=== PATIENT | male | born 2000 | race Caucasian/White ===

== ENCOUNTER 2024-01-05 05:58 | Day surgery (SDC) | payer SELFPAY, OTHER ==
[2024-01-05] VITALS (11 sets, daily range): BP systolic 103–142; BP diastolic 64–80; PULSE 58–73; RESP 16–18; TEMP 36.4–37.2; O2SAT 95–99; BMI 27.3
--- OUTSIDE RECORDS SUMMARY | 2024-01-05 06:04 | XMS RPT_ITS | CCD ---
Author Name Unknown Address [address] [place] [address] Organization [facility] Care Team Providers Care Senior Agricultural Assistant Name Role Phone ARETHA AMADOR Attending Unavailable ARETHA AMADOR Primary Care Unavailable ARETHA AMADOR Admitting Unavailable Unavailable Primary Care Provider UnavailAZUL Vasquez Referring Unavailable SELF Referring Unavailable AZUL SCRUGGS Attending Unavailable RAO PEARCE Attending UnavailAZUL Vasquez Referring Unavailable Og Wilcox PA-C Unavailable Timothy ZAMARRIPA, Dr. Starks Unavailable [phone] Problems Active Problems Problem Classification Problem Date Documented Da te Episodic/Chronic Abdominal hernia (8 sources) Right inguinal hernia ; Translations: [Unilateral inguinal hernia, without obstruction or gangrene, not specified as recurrent] Onset: 09-14-2023 09-14-2023 Episodic Other male genital disorders (3 sources) Adult hydrocele; Translations: [Hydrocele, unspecified] 07-13-2023 Episodic Other male genital disorders (2 sources) Hydrocele, unspecified; Translations: [Hydrocele in adult] Onset: 09-02-2023 Episodic Past or Other Problems Problem Classification Problem Date Documented Da te Episodic/Chronic Unclassified (2 sources) Hernia - Pt has hernia causing hydrocele, DX one year ago through [facility]. Pt states they gave me the run around . Pt presents today for reevaluation and to discuss referral for surgical repair. Pt states the hernia is painful with excessive activity and significantly worsens with heavy lifting. Pt denies recent change in size since diagnosis. Pt does note improvement with supportive undergarments and notes that the mass is fully reducible when laying supine. 11-18-2023 Results Test Name Value Interpretation Reference Range Facil ity Vital Signs Date Time Vital Sign Value Performing Clinician Aarti cuenca 11-18-2023 15:08-0500 Body height 185.42 cm Og AlexandraBrenden PA- C Work Phone: [employer]; [employer] 11-18-2023 15:08-0500 Body mass index (BMI) [Ratio] 26.65 kg/m2 Og Brenden PA-C Work Phone: [employer]; [employer] 11-18-2023 15:08-0500 Body surface area Derived from formula 2.16 m2 MargaritaForwardMetricsBrenden PA-C Work Phone: [employer]; [employer] 11-18-2023 15:08-0500 Body weight 91.63 kg MargaritaForwardMetricsBrenden PA- C Work Phone: [employer]; [employer] 11-18-2023 15:08-0500 Diastolic blood pressure 62 mm[Hg] MargaritaForwardMetricsBrenden PA-C Work Phone: [employer]; [employer] Encounters Encounter Date Encounter Type Care Provider Facility Start: 11-18-2023 End: 11-18-2023 Patient encounter procedure Og Chaneyetler PA-C Work Phone: [employer] Start: 09-14-2023 End: 09-14-2023 ambulatory RAO PEARCE Facility:[id number] Start: 09-14-2023 End: 09-14-2023 Patient encounter procedure Rao Pearce MD Work Phone: Urology Procedures Date Procedure Procedure Detail Performing Clinician Start: 09-02-2023 Dup-scan artl sasha abdl/pel/scrot&/rpr orgn com Azul Scruggs PA-C Work Phone: Start: 09-02-2023 Us scrotum & contents B fahad GAONA-Trini Work Phone: Plan of Treatment Date Care Activity Detail Author Start: 07-16-2023 Influenza vaccination [facility] Start: 11-15-2022 DEPRESSION ASSESSMENT DEPRESSION ASSESSMENT [facility] Start: 2018 Urine microalbumin profile [facility] Start: 2017 HEPATITIS C SCREENING HEPATITIS C SCREENING [facility] Start: 2017 HIV SCREENING HIV SCREENING [facility] Start: 2015 Meningococcal B Vaccine: Consider Based On Risk (1 of 2 - Patient Seeks Protection) Meningococcal B Vaccine: Consider Based On Risk (1 of 2 - Patient Seeks Protection) [facility] Start: 2015 MENINGOCOCCAL B: Consider based on risk (1 of 2 - Patient Seeks Protection) MENINGOCOCCAL B: Consider based on risk (1 of 2 - Patient Seeks Protection) [facility] Start: 2013 PEDS TO ADULT TRANSITION ANNUAL ASSESSMENT PEDS TO ADULT TRANSITION ANNUAL ASSESSMENT [facility] Start: 2011 PEDS TO ADULT TRANSITION INITIAL DISCUSSION PEDS TO ADULT TRANSITION INITIAL DISCUSSION [facility] Start: 2008 HPV VACCINE (1 - Male 2-dose series) HPV VACCINE (1 - Male 2-dose series) [facility] Start: 01-31-2000 COVID-19 VACCINE (#1) COVID-19 VACCINE (#1) [facility] Start: 1999 HEPATITIS B (1 of 3 - 3-dose series) HEPATITIS B (1 of 3 - 3-dose series) [facility] Start: 1999 Hepatitis B Vaccine (1 of 3 - 3-dose series) Hepatitis B Vaccine (1 of 3 - 3-dose series) [facility] End: 10-13-2024 US HIP RIGHT US HIP RIGHT Radiology Routine Right inguinal hernia Hydrocele in adult 1 Occurrences starting 09/14/2023 until 10/13/2024 [facility] Work Phone: Payers Date Payer Category Payer Unknown [id number] 2023 Unknown [id number] Social History Date Type Detail Facility Start: 07-13-2023 [facility] History of tobacco use Current smoker [facility] History of tobacco use Cigarette Smoker C [facility] Start: 07-13-2023 Tobacco use and exposure Smokeless tobacco non-user [facility] Start: 07-13-2023 Alcohol intake Ex-drinker (finding) [facility] Start: 07-13-2023 End: 09-14-2023 History of Social function [facility] Start: 07-13-2023 End: 09-14-2023 Tobacco use panel [facility] Start: 1999 Sex Assigned At Not on file C [facility] Start: 09-14-2023 Alcohol intake Current drinke r of alcohol (finding) [facility] National Score (1-100), lower number is lower risk 48 [facility] Start: 09-14-2023 Alcohol Comment Social [facility] Tobacco Use: Tobacco Use: ; C urrent every day smoker. [employer]; [employer] Male [employer]; [employer] Work Phone: Smokes tobacco daily [employer] Work Phone: Clinical Notes 07-13-2023 to 09-14-2023 Rao Pearce MD - 09/14/2023 4:25 PM EDTTelephone Encounter - Renée Joel - 09/09/2023 10:23 AM EDTTelephone Encounter - Azul Scruggs PA- C - 09/08/2023 2:21 PM EDT Note Date & Type Note Facility 09-14-2023 Note HNO ID: [id number] Author: Rao Pearce MD Service: ? Author Type: Physician Type: Progress Notes Filed: 09/14/2023 4:53 PM Note Text: [facility] UROLOGY ESTABLISHED PATIENT CLINIC NOTE UROL [place] [facility] PATIENT INFO: Bruce Schrader 23 year old PCP: No primary care provider on file. REASON FOR VISIT: Bilateral hydroceles HPI: Bruce Schrader returns for continuing evaluation and management. Constant pain of the scrotum with certain activities, ie sneezing, cough, heavy lefting. Remebers a moment several months ago when he was lifting heavy items for several days, felt a sudden pain in his right groin, and then began seeing swelling in the right inguinal region. This is now traveled down into the right scrotum. UROLOGICAL DATA: Urinalysis: No results found for this basename: uglucpoc,ubilipoc,uketonpoc,usg poc,uhbpoc,uphpoc,upropoc,uurop oc,unitpoc,uw bcpoc,ucolpoc,uclarpoc Post Void Residual, Ultrasound: N/A cc OTHER DATA: No results found for: PSA , PSAPER No results found for: ISOPSA No results found for: CREAT No results found for: TESTOST , TESTFREE PMHx/PSHx: see above, otherwise unchanged Rx: reviewed and unchanged ROS: see above, otherwise unchanged Denies any voiding dysfunction. Labs: None Imaging: None MEDICATIONS: No current outpatient medications on file. No current facility-administered medications for this visit. PHYSICAL EXAM: BP 110/72 Pulse 74 SpO2 94% There is no height or weight on file to calculate BMI. General: Well masculinized, well nourished male Psych: euthymic, NAD Neuro: AANDOx3 Inguinal: No lesions, mild right inguinal swelling noted with out tenderness Phallus: normal, circumcised, no lesions Meatus: orthotopic, patent, no discharge Scrotum: Significant swelling noted superior to the right testicle, however none below where typical hydrocele would accumulate. No lesions, normal rugae Testes: Descended, nontender, and no masses bilaterally VERONICA not indicated ASSESSMENT/PLAN: 1. Right inguinal hernia - ICD9: 550.90, ICD10: K40.90 (primary diagnosis) -Patient's symptoms are likely due to a sliding right inguinal hernia, especially since swelling has moved from the inguinal region down now into the right scrotum. Initially presented with acute onset after heavy lifting. Hydroceles seen on ultrasound are minimal. Obtain additional imaging and refer to general surgery. - US HIP RIGHT - CONSULT TO GENERAL SURGERYJamie 2. Hydrocele in adult - ICD9: 603.9, ICD10: N43.3 - Hydrocele size is relatively small. Reassurance provided. Surgical intervention not required at this time. FOLLOW UP: He will follow up with General Surgery Rao Pearce M.D, MS Associate Staff [facility] Cc: Azul Scruggs PA-C [facility] 09-14-2023 History of Presen t illness Narrative Images from the original note were not included. [facility] [place] UROLOGY ESTABLISHED PATIENT CLINIC NOTE UROBouchra POWELL PATIENT INFO: Bruce Schrader 23 year old PCP: No primary care provider on file. REASON FOR VISIT: Bilateral hydroceles HPI: Bruce Schrader returns for continuing evaluation and management. Constant pain of the scrotum with certain activities, ie sneezing, cough, heavy lefting. Remebers a moment several months ago when he was lifting heavy items for several days, felt a sudden pain in his right groin, and then began seeing swelling in the right inguinal region. This is now traveled down into the right scrotum. UROLOGICAL DATA: Urinalysis: No results found for this basename: uglucpoc,ubilipoc,uketonpoc,usg poc,uhbpoc,uphpoc,upropoc,uurop oc,unitpoc,uwbcpoc,ucolpoc,ucla rpoc Post Void Residual, Ultrasound: N/A cc OTHER DATA: No results found for: PSA , PSAPER No results found for: ISOPSA No results found for: CREAT No results found for: TESTOST , TESTFREE PMHx/PSHx: see above, otherwise unchanged Rx: reviewed and unchanged ROS: see above, otherwise unchanged Denies any voiding dysfunction. Labs: None Imaging: None MEDICATIONS: No current outpatient medications on file. No current facility-administered medications for this visit. PHYSICAL EXAM: BP 110/72 Pulse 74 SpO2 94% There is no height or weight on file to calculate BMI. General: Well masculinized, well nourished male Psych: euthymic, NAD Neuro: A&Ox3 Inguinal: No lesions, mild right inguinal swelling noted with out tenderness Phallus: normal, circumcised, no lesions Meatus: orthotopic, patent, no discharge Scrotum: Significant swelling noted superior to the right testicle, however none below where typical hydrocele would accumulate. No lesions, normal rugae Testes: Descended, nontender, and no masses bilaterally VERONICA not indicated ASSESSMENT/PLAN: 1. Right inguinal hernia - ICD9: 550.90, ICD10: K40.90 (primary diagnosis) -Patient's symptoms are likely due to a sliding right inguinal hernia, especially since swelling has moved from the inguinal region down now into the right scrotum. Initially presented with acute onset after heavy lifting. Hydroceles seen on ultrasound are minimal. Obtain additional imaging and refer to general surgery. - US HIP RIGHT - CONSULT TO GENERAL SURGERY, Jamie 2. Hydrocele in adult - ICD9: 603.9, ICD10: N43.3 - Hydrocele size is relatively small. Reassurance provided. Surgical intervention not required at this time. FOLLOW UP: He will follow up with General Surgery Rao Pearce M.D, MS Associate Staff [facility] Cc: Azul Scruggs PA-C documented in this encounter [facility] 09-09-2023 Miscellaneous Notes Pt confirmed his appt with Dr. Pearce in [place] 09/14/23 @ 4:00 pm. Blanquita Patient would like surgical consult for Bilateral Hydrocele, he was given results and would like to discuss surgical options.. HANY Santiago, TIGRE CHAVEZ Patient called back and given the below message of results and contact information for Dr. Benson. Patient can be reached at [phone] today if needed. Raquel Lemus RN Called patient. No answer- left message to call clinic. Janna Espinosa LPN Left pt vm. He needs to call fin clearance. He has self pay adventist ins. He needs an appt for christine hydroceles. Ref Called patient. No answer- left message to call clinic. Janna Espinosa LPN Please let patient know he does have bilateral Hydrocele, and I sent referral to Dr. Benson for Surgical consult if patient wishes to go forward with surgical consult HANY Santiago, TIGRE CHAVEZ documented in this encounter [facility] 09-02-2023 Note HNO ID: [id number] Author: Melani Francois RDMS Service: ? Author Type: Lining Cementer Type: Progress Notes Filed: 09/02/2023 2:21 PM Note Text: Radiology Service Progress Note PATIENT NAME: Bruce Schrader DATE OF SERVICE: September 02, 2023 TIME: 2:21 PM PATIENT IDENTITY VERIFICATION COMPLETED USING TWO (2) IDENTIFIERS: Name and Date of confirmed by patient verbally. FALL SCREENING: Has the patient had 2 falls in the last year or 1 fall with injury or currently using an Ambulatory Assistive Device (Walker, Cane, Wheelchair, Crutches, etc.)? No PATIENT GENDER DATA: Male PATIENT RELEVANT IMPLANT DATA REVIEWED: Not Applicable RADIOLOGY DEPARTMENT: Ultrasound PERIPHERAL IV DATA: Not applicable SIGNED BY: Melani Francois RDMS RVT September 02, 2023 2:[address] [facility] 09-02-2023 History of Presen t illness Narrative Radiology Service Progress Note PATIENT NAME: Bruce Schrader DATE OF SERVICE: September 02, 2023 TIME: 2:21 PM PATIENT IDENTITY VERIFICATION COMPLETED USING TWO (2) IDENTIFIERS: Name and Date of confirmed by patient verbally. FALL SCREENING: Has the patient had 2 falls in the last year or 1 fall with injury or currently using an Ambulatory Assistive Device (Walker, Cane, Wheelchair, Crutches, etc.)? No PATIENT GENDER DATA: Male PATIENT RELEVANT IMPLANT DATA REVIEWED: Not Applicable RADIOLOGY DEPARTMENT: Ultrasound PERIPHERAL IV DATA: Not applicable SIGNED BY: Melani Francois RDMS RVT September 02, 2023 2:21 PM documented in this encounter [facility] 07-13-2023 Note HNO ID: [id number] Author: Azul Scruggs PA-C Service: ? Author Type: Physician Asphalt Coater Type: Progress Notes Filed: 07/13/2023 6:30 PM Note Text: [facility] [place] [facility] NEW PATIENT CLINIC NOTE SERVICE DATE: 07/13/2023 SERVICE TIME: 6:25 PM NAME: Bruce Schrader CHIEF COMPLAINT: Right side Hydrocele HISTORY OF PRESENT ILLNESS: Bruce Schrader is a 22 year old male presenting with Right side hydrocele The patient reports right side scrotum is enlarging more from 10/2022 and starting to cause pain Discussed MRI results in [facility] and will get an updated Scrotum US Refer to Dr. Benson once US is final LUTS: None Other symptoms: ED - no LABS: No results found for: TESTOST No results found for: TESTFREE No results found for: PSA No results found for: HCT No results found for: PSA No results found for: CREAT . MEDICATIONS: No prescriptions on file. PAST MEDICAL HISTORY: History reviewed. No pertinent past medical history. PAST SURGICAL HISTORY: History reviewed. No pertinent surgical history. FAMILY HISTORY: No family history on file. SOCIAL HISTORY: Social Connections: Not on file REVIEW OF SYSTEMS: GENERAL: No fever, chills, weight loss, or fatigue. ENMT: Negative CARDIOVASCULAR:NO CHEST PAIN, PALPITATIONS, ANKLE EDEMA RESPIRATORY: No chronic cough, wheezing, dyspnea, hemoptysis. GENITOURINARY: SEE HPI MUSCULOSKELETAL:NO CHRONIC BACK PAIN, ARTHRITIS, CHRONIC NECK PAIN SKIN: NO VARICOSE VEINS, RASH, ABNORMAL ITCHING HEME/LYMPH/IMMUNE:Negative for prolonged bleeding, bruising easily or swollen nodes NEUROLOGICAL: NO HEADACHES, NUMBNESS, SEIZURES, STROKE DIABETES: no All other systems reviewed and are negative PHYSICAL EXAMINATION: Blood pressure 108/60, pulse 60, temperature 36.7 ?C (98 ?F), temperature source Temporal, resp. rate 12, height 185.4 cm (6' 1 ), weight 94.4 kg (208 lb 3.2 oz), SpO2 96 %. GENERAL: WNL nutrition, no deformities, healthy appearing NEURO: Awake, alert and oriented x 3 and Normal gait PSYCH: No signs of depression, anxiety, or agitation ENMT (Ear, Nose, Mouth, Throat): No masses, adenopathy, icterus. Thyroid nonpalpable RESP: NL effort, no retractions or purse-lip breathing. CV: No extremity swelling, varices, edema, pallor, erythema GASTROINTESTINAL: Soft, nontender, nondistended, no masses. HERNIAS: None SKIN: No rash, lesions No palpable lymphadenopathy MUSCULOSKELETAL: Extremities normal. No deformities, edema, clubbing or skin discoloration. GENITOURINARY: MALE EXAM: Hydroceles: Right PROBLEM LIST REVIEW: Yes LABS: No results found for this or any previous visit. IMAGING: Scrotum US - Pending IMPRESSION/PLAN: 22 year old male with 1. Hydrocele in adult - ICD9: 603.9, ICD10: N43.3 > Reviewed MRI from 2021 that shows moderate sized hydrocele on right side Dicussed Consult with Dr. Benson after he has an updated Scrotum US Patient feels there is a new hernia as well, will get imaging and if an inguinal hernia is present he may need Gen Surg Consult I spent a total of 30 minutes on the date of the service which included preparing to see the patient, face to face patient care, completing clinical documentation, obtaining and/or reviewing separately obtained history, performing a medically appropriate examination, counseling and educating the patient/family/caregiver, ordering medications, tests, or procedures, and care coordination. Azul Scruggs, ANTONELLAS, [place], PA-C [facility] 07-13-2023 History of Presen t illness Narrative Images from the original note were not included. [facility] [place] [facility] NEW PATIENT CLINIC NOTE SERVICE DATE: 07/13/2023 SERVICE TIME: 6:25 PM NAME: Bruce Schrader CHIEF COMPLAINT: Right side Hydrocele HISTORY OF PRESENT ILLNESS: Bruce Schrader is a 22 year old male presenting with Right side hydrocele The patient reports right side scrotum is enlarging more from 10/2022 and starting to cause pain Discussed MRI results in [facility] and will get an updated Scrotum US Refer to Dr. Benson once US is final LUTS: None Other symptoms: ED - no LABS: No results found for: TESTOST No results found for: TESTFREE No results found for: PSA No results found for: HCT No results found for: PSA No results found for: CREAT . MEDICATIONS: No prescriptions on file. PAST MEDICAL HISTORY: History reviewed. No pertinent past medical history. PAST SURGICAL HISTORY: History reviewed. No pertinent surgical history. FAMILY HISTORY: No family history on file. SOCIAL HISTORY: Social Connections: Not on file REVIEW OF SYSTEMS: GENERAL: No fever, chills, weight loss, or fatigue. ENMT: Negative CARDIOVASCULAR:NO CHEST PAIN, PALPITATIONS, ANKLE EDEMA RESPIRATORY: No chronic cough, wheezing, dyspnea, hemoptysis. GENITOURINARY: SEE HPI MUSCULOSKELETAL:NO CHRONIC BACK PAIN, ARTHRITIS, CHRONIC NECK PAIN SKIN: NO VARICOSE VEINS, RASH, ABNORMAL ITCHING HEME/LYMPH/IMMUNE:Negative for prolonged bleeding, bruising easily or swollen nodes NEUROLOGICAL: NO HEADACHES, NUMBNESS, SEIZURES, STROKE DIABETES: no All other systems reviewed and are negative PHYSICAL EXAMINATION: Blood pressure 108/60, pulse 60, temperature 36.7 C (98 F), temperature source Temporal, resp. rate 12, height 185.4 cm (6' 1 ), weight 94.4 kg (208 lb 3.2 oz), SpO2 96 %. GENERAL: WNL nutrition, no deformities, healthy appearing NEURO: Awake, alert and oriented x 3 and Normal gait PSYCH: No signs of depression, anxiety, or agitation ENMT (Ear, Nose, Mouth, Throat): No masses, adenopathy, icterus. Thyroid nonpalpable RESP: NL effort, no retractions or purse-lip breathing. CV: No extremity swelling, varices, edema, pallor, erythema GASTROINTESTINAL: Soft, nontender, nondistended, no masses. HERNIAS: None SKIN: No rash, lesions No palpable lymphadenopathy MUSCULOSKELETAL: Extremities normal. No deformities, edema, clubbing or skin discoloration. GENITOURINARY: MALE EXAM: Hydroceles: Right PROBLEM LIST REVIEW: Yes LABS: No results found for this or any previous visit. IMAGING: Scrotum US - Pending IMPRESSION/PLAN: 22 year old male with 1. Hydrocele in adult - ICD9: 603.9, ICD10: N43.3 > Reviewed MRI from 2021 that shows moderate sized hydrocele on right side Dicussed Consult with Dr. Benson after he has an updated Scrotum US Patient feels there is a new hernia as well, will get imaging and if an inguinal hernia is present he may need Gen Surg Consult I spent a total of 30 minutes on the date of the service which included preparing to see the patient, face to face patient care, completing clinical documentation, obtaining and/or reviewing separately obtained history, performing a medically appropriate examination, counseling and educating the patient/family/caregiver, ordering medications, tests, or procedures, and care coordination. HANY Santiago, [place], TIGRE documented in this encounter [facility] [place] [facility] Diagnosis Right inguinal hernia- Primary Inguinal hernia without mention of obstruction or gangrene, unilateral or unspecified, (not specified as recurrent) Hydrocele in adult documented [facility] [place] [facility] Diagnosis Hydrocele in adult [facility] Diagnostic Procedure Only (Routine) - Pending Review Specialty Diagnoses / Procedures Referred By Elieser francisco Referred To Contact US IMAGING Diagnoses Hydrocele in adult Procedures US SCROTUM AND CONTENTS US SCROTUM & CONTENTS Azul Scruggs PA-C [address] [place] [address] [place] [address] Referral ID Status Reason Start Date Expiration Date Visits Requested Visits Authorized [id number] Pending Review Auto-Generat ed Referral 07/13/2023 08/11/2024 1 1 [facility] Diagnostic Procedure Only (Routine) - Closed Specialty Diagnoses / Procedures Referred By Elieser t Referred To Contact US IMAGING Diagnoses Hydrocele in adult Procedures US SCROTUM AND CONTENTS US SCROTUM & CONTENTS Azul Scruggs PA-C [address] [place] [id number] [facility] Imaging [facility] Referral ID Status Reason Start Date Expiration Date V isits Requested Visits Authorized [id number] Closed Auto-Generat ed Referral Patient Cleared - [facility] Fund 07/13/2023 08/11/2024 1 1 [facility] Summary Purpose Family History Hypertension Status:Active Comments:Mother. Hypertension Status:Active Comments:Mother. Advance Directives No Advanced Directives Records FoundNo Advanced Directives Records FoundNo Advanced Directives Records Found Reason for Referral Specialty Diagnoses / Procedures Referred By Elieser t Referred To Contact General Surgery Diagnoses Right inguinal hernia Procedures CONSULT TO GENERAL SURGERY Rao Pearce MD [address] [place] [address] [place] [address] [place] [address] Referral ID Status Reason Start Date Expiration Date Visits Requested Visits Authorized [id number] Ref Not Required PCP Requested Referral 3 09/13/2024 1 1 Specialty Diagnoses / Procedures Referred By Elieser t Referred To Contact US IMAGING Diagnoses Right inguinal hernia Hydrocele in adult Procedures US HIP RIGHT US COMPL JOINT R-T W/IMAGE DOCUMENTATION Rao Pearce MD [address] [place] [address] [place] [address] Referral ID Status Reason Start Date Expiration Date Visits Requested Visits Authorized [id number] Pending Review Auto-Generat ed Referral 3 10/13/2024 1 1 Additional Source Comments (unrecognized sect ion and content) No Status Records FoundNo Status Records FoundNo Status Records Found INFORMATION SOURCE (unrecogn ized section and content) DATE CREATED AUTHOR AUTHOR'S ORGANNICOLAS ATION 09/11/2023 [facility] DATE CREATED AUTHOR AUTHOR'S ORGANNICOLAS ATION 09/15/2023 [facility] nter Source Comments (unrecognize d section and content) In the event this informatio n is protected by the Federal Confidentiality of Alcohol and Drug Abuse Patient Records regulations: The Federal rules restrict any use of the information to criminally investigate or prosecute any alcohol or drug abuse patient.[facility] HealthIn the event this information is protected by the Federal Confidentiality of Alcohol and Drug Abuse Patient Records regulations: The Federal rules restrict any use of the information to criminally investigate or prosecute any alcohol or drug abuse patient.[facility] HealthIn the event this information is protected by the Federal Confidentiality of Alcohol and Drug Abuse Patient Records regulations: The Federal rules restrict any use of the information to criminally investigate or prosecute any alcohol or drug abuse patient.[facility] HealthIn the event this information is protected by the Federal Confidentiality of Alcohol and Drug Abuse Patient Records regulations: The Federal rules restrict any use of the information to criminally investigate or prosecute any alcohol or drug abuse patient.[facility] Reason for Visit (unrecogniz ed section and content) Specialty Diagnoses / Procedures Referred By Elieser t Referred To Contact UROLOGY Diagnoses testicular pain Procedures office visit/ est care Self Urol [facility] [address] [place] [address] Referral ID Status Reason Start Date Expiration Date V isits Requested Visits Authorized [id number] Closed Patient Cleared - [facility] 06/29/2023 09/27/2023 1 1 Reason Comments Appointment Reason Comments Hydrocele in adult Pain when lifting Specialty Diagnoses / Procedures Referred By Elieser t Referred To Contact Urology / UROLOGY Diagnoses urol est bilateral hydroceles Procedures Urol est Azul Scruggs PA-C [address] [place] [address] Joseph Benson MD [address] [place] [address] Referral ID Status Reason Start Date Expiration Date V isits Requested Visits Authorized [id number] Closed Financial Clearance Required - Self Pay Patient Cleared - [facility] 09/06/2023 12/05/2023 1 1 Reason Comments Radiology US Specialty Diagnoses / Procedures Referred By Elieser t Referred To Contact US IMAGING Diagnoses Hydrocele in adult Procedures US SCROTUM AND CONTENTS US SCROTUM & CONTENTS Azul Scruggs PA-C [address] [place] [address] [place] [address] Referral ID Status Reason Start Date Expiration Date V isits Requested Visits Authorized [id number] Closed Auto-Generat ed Referral Patient Cleared - [facility] 07/13/2023 08/11/2024 1 1 FOR RECORDS PERTAINING TO PATIENTS WHO ARE OR HAVE BEEN ENROLLED IN A CHEMICAL DEPENDENCY/SUBSTANCEABUSE PROGRAM, SOME INFORMATION MAY BE OMITTED. This clinical summary was aggregated from multiple sources. Caution should be exercised in using it in the provision of clinical care. This summary normalizes information from multiple sources, and as a consequence, information in this document may materially change the coding, format and clinical context of patient data. In addition, data may be omitted in some cases. CLINICAL DECISIONS SHOULD BE BASED ON THE PRIMARY CLINICAL RECORDS. [facility] provides no warranty or guarantee of the accuracy or completeness of information in this document.
--- NOTE | 2024-01-05 07:07 | HP.PCM_ITS ---
History and Physical Date of Admission: 01/05/24 Date of Service: 12/03/23 MR#: [id number] Acct: [id number] Name: STORM WILHELM Rep #: [id number] : 2000 Provider: Dr. Tereza Aguirre MD Age/Sex: 23/M Location: [facility] Status: Signed Intake Vital Signs 12/03/2413:14 Height 6 ft 1 in Weight: 208 lb 2 oz BMI 27.4 BP 138/73 H Blood Pressure Location Rt brachial Position Sitting Respiration 17 Pulse 73 Pulse Source Monitor Temp 97.4 F L Temp Source Temporal Pulse Oximetry (%) 96 Oxygen Delivery Method room air Intake Visit Reasons: Hernia Chief Complaint: right inguinal hernia Calker Required: No Is patient in pain?: No Allergies No Known Allergies Allergy (Unverified 12/03/23 14:15) Medications NK 12/03/23 [History Confirmed 12/03/23] PFSH Family History (Updated 12/03/23 @ 14:14 by Janna Martin LPN) Mother Hypertension Social History (Updated 12/03/23 @ 14:14 by Janna Martin LPN) Smoking Status: Current every day smoker tobacco type: cigarettes alcohol intake: current alcohol intake frequency: holidays/special occasions only substance use type: does not use HPI HPI HPI: 23-year-old male presents due to right inguinal hernia. Patient states she has had it for about a year and a half however it seems to have gotten larger he does have a bulge that does reduce 20s laying down and he is able to push it back in. Patient currently states pain with it may be a 2/10. 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 ROS General General: No weight change, appetite, fatigue, colon cancer, breast cancer or weakness HEENT HEENT: No difficulty swallowing, eye injury, eye surgery, swollen glands or hoarseness Endo Endocrine: No thyroid disease, diabetes mellitus, thyroid cancer, Hair loss, heat intolerance or cold intolerance Skin Skin: No rash or changing moles Musc Musculoskeletal: No back problems, arthritis, rheumatoid arthritis, gout or joint pain Cardio Cardiovascular: No murmur, pacemaker, heart disease, atrial fibrillation, high blood pressure, heart attack, heart stent, palpitations, shortness of breat with exertion or chest pain Psych Psychiatric: No depression, anxiety or hearing voices Resp Respiratory: No shortness of breath, No sleep apnea, No cough, No COPD, No asthma, No emphysema and No wheezing Gastro Gastrointestinal: No abdominal pain, No nausea or vomiting, No diarrhea, No constipation, No blood in stool, No acid reflux, No hemorrhoids, No ulcers, No gallbladder problem and No black,tarry stools Calixto Hematologic: No blood thinners, No blood disorders, No bleeding, No anemia and No blood clots Neuro Neurologic: No system reviewed and no additional complaints, except as documented, No as per HPI, No abnormal gait, No abnormal hearing, No abnormal movements, No abnormal speech, No behavioral changes, No burning sensations, No confusion, No convulsions, No disequilibrium, No dizziness, No localized weakness, No frequent falls, No headache(s), No lack of coordination, No loss of vision, No memory loss, No numbness, No other visual disturbances, No radicular pain, No restless legs, No sensory deficit, No syncope, No tingling, No tremor(s), No weakness and No other Exam Const General: cooperative, healthy appearing, comfortable and no acute distress HENMT Head: normocephalic and atraumatic Neck Neck: supple Resp Effort & Inspection: normal respiratory effort Cardio Rate: regular rate GI Inspection: non-distended Palpation: soft, no hernias and nontender Other: Right inguinal hernia on exam?reducible--laminator preforms present Skin General: no rashes or lesions noted Neuro General: CN's II-XI intact bilaterally Extrem General: normal to inspection Psych Mental Status: mental status grossly normal Attitude: cooperative Assessment and Plan Assessment and Plan (1) Right inguinal hernia: Status: Acute Plan Plan to do a laparoscopic right inguinal hernia repair with mesh. Reviewed the procedure with the patient including the risks, including but not limited to infection, bleeding, paresthesia, chronic pain, injury to small bowel or contents of the spermatic cord, and recurrence. Patient no further question at this time. Tereza Aguirre M.D. Pager: [phone] [facility] [address] [place] [address], [address] [place] [address] Office: [phone] Coding Level of Care Code Off vis,new,level 3 Diagnoses Right inguinal hernia K40.90 12/07/23 1145 <Electronically signed by Tereza Aguirre MD> Date Tereza Aguirre MD
[2024-01-05] MEDS: Cefazolin 2 GM in 0.9% Normal Saline (100mL Bag) 100 ML IV (07:26)
[2024-01-05] MEDS: Bupivacaine Mpf 0.5% 30 ML VIAL (07:49)
--- NOTE | 2024-01-05 09:44 | PCM.OPRPT ---
Report of Operation Date of Procedure: 01/05/24 Pre-Operative Diagnosis: Right inguinal hernia Post-Operative Diagnosis: Bilateral inguinal hernia Surgery/Procedure Performed:: laparoscopic right inguinal hernia repair with mesh Description of Surgical Findings:: Redundant sac ligated and closed with the Endoloop, patient does have a small left inguinal hernia seen during laparoscopy asymptomatic?picture taken Surgeon: Tereza Aguirre service officer: Sara Garcia Type of Anesthesia: General/Supplemental Anesthesiologist: Gilberto Jefferson Special Medications: Ancef 2 g IV x 1 Specimen's removed: None Estimated Blood Loss (mL): 15 cc Description of Procedure: Indications: 23-year-old male presented with right inguinal hernias which was symptomatic. Laparoscopic right inguinal hernia repair with mesh was elected patient was agreeable. Description of procedure: Patient was brought to operating room placed supine operative table. Timeout was completed verifying correct patient, procedure, site, positioning, special, prior to beginning procedure. General anesthesia was induced. Grajeda catheter was placed. Patient's arms were tucked and padded appropriately. Midline supraumbilical incision was made with a 15 blade scalpel. The fascia was elevated and incised. Entry into the abdomen was confirmed visually. The Blanco trocar was placed. Laparoscope was placed. Verifying no injury during initial trocar placement. Patient was placed in Trendelenburg position. Two 5 mm trochars were placed lateral to the rectus sheath under direct visualization. Both the inguinal regions were inspected and larger right indirect inguinal hernia was seen along with a smaller left indirect inguinal hernia. The median umbilical ligament was divided sharply with electrocautery. Peritoneum was incised with the endoscopic scissors along a line 2 cm above the superior edge of the hernia defect extending from the median umbilical ligament to anterior superior iliac spine. Peritoneal flap was mobilized inferiorly using blunt and sharp dissection. The inferior epigastric vessels were exposed and symphysis pubis and identified. Clay's ligament was identified. Dissection was continued inferiorly to the iliopubic track with care taken to avoid injury to the femoral branch of the genitofemoral nerve and lateral femoral cutaneous nerve. The cord structures were parietalized. The indirect hernia sac was noted and mobilized from the cord structures. Due to redundant sac the sac was ligated and reduced into the peritoneal cavity. A large mid weight size Bard 3D max mesh right was used. The mesh was rolled longitudinally into a compact cylinder and passed through the trocar. The cylinder was placed along the inferior aspect of the working space and unrolled into place to completely cover the direct, indirect and femoral spaces and laying flat. The mesh was secured in place medially to Clay's ligament using the Secure strap as well as to the anterior abdominal wall. care was taken to avoid the inferolateral triangle containing iliac vessels and genital nerves. The peritoneal flap was secured back to the abdominal wall with secure strap as well. There was some bleeding at one of the tack sites. Pressure was held and appeared to be controlled with pressure and hemoblast was placed on the area with pressure held with a wet Ray-Cristhian as well. Hemostasis was assured. Ray-Cristhian was removed from the abdomen. Endoloop was used to secure the peritoneum/indirect sac as that needed to be ligated due to redundancy. Mesh was covered well with peritoneum. After ensuring adequate hemostasis, the trochars were removed and pneumoperitoneum allowed to escape. The supraumbilical trocar incision was closed with a 0 Vicryl figure of 8 suture. The skin was closed with 4-0 Monocryl interrupted sutures and Steri-Strips. Patient's testicles are also confirmed in the scrotum bilaterally. Patient tolerated procedure well was taken to the postanesthesia care unit in stable condition. Grafts/Implants Used: Right large 3D max mid LOT [id number] REF [id number] Complications none
--- NOTE | 2024-01-05 09:53 | DCINST_ITS ---
Discharge Instructions Diet Discharge Diet: Light diet - advance as tolerated Activity Discharge Activity: May Not Drive (while taking narcotic pain medications.) May shower in (days): 1 Lifting Restrictions: no lifting >20 lbs x 2 wks, no strenuous exercise for 4 wks Additional Activity Instructions:: Continue to wear scrotal support for about a week. Dressing / Incision Call your doctor if your incision/area has: Continuous Slow Oozing, Sudden Increased Bleeding, Increased Pain/ Swelling, Increased Redness, Foul Smelling Discharge and Swelling at the incision site Call your doctor if you observe: Fever of 101 or Higher Remove Dressing in: 2 days Cleanse incision/area with: Soap & Water Additional Dressing/Incision Instructions:: Steri-Strips will fall off in 7 to 10 days, if they do not fall off okay to remove after 10 days. Follow Up Care Please Follow Up With: Tereza Aguirre MD When: Call the office for a follow-up appointment 2 weeks; after 5 PM and on the weekends call [phone] with any concerns. Test Results: Test results from this visit will be discussed in further detail at your follow- up appointment, if applicable. Discharge Plan Admission Attending Provider: Tereza Aguirre Primary Care Provider: Og Wilcox Discharge Orders/Prescriptions Prescriptions: New oxycodone-acetaminophen 5-325 mg tablet 1 - 2 tab PO Q6H PRN (Reason: pain) 3 Days Qty: 14 0RF Referrals / Follow Up: Og Wilcox PA [Primary Care Provider] - Disposition Disposition (needs filled in before D/C Order can be placed): Home, Self Care
[2024-01-05] MEDS: Ibuprofen 600 MG Tablet PO (10:24)
[2024-01-05] MEDS: Oxycodone/Apap 5/325 Tablet PO (11:51)
== END 2024-01-05 13:42 | disposition home or self-care (01) ==
LOC: SDC 06:03 → AC 06:05
PROVIDERS: PCP Physician Assistant; Referring Provider Surgery; Visit Provider Surgery
PROC: (CPT 49650; principal; 2024-01-05 07:10)
DX: K40.20 Bilateral inguinal hernia, without obstruction or gangrene, not specified as recurrent (principal); F17.210 Nicotine dependence, cigarettes, uncomplicated
CPT/HCPCS: 49650; 00830; J7120; J2405